=== PATIENT | female | born 1965 | race Caucasian/White ===

== ENCOUNTER → 2016-09-26 | Outpatient (CLI) | payer BC | END | disposition home or self-care (01) | LOC: C.PAPS 16:18 | PROVIDERS: ATTEND Obstetrics & Gynecology | DX: Z01.419 Encounter for gynecological examination (general) (routine) without abnormal findings (principal) ==

== ENCOUNTER → 2016-09-26 | Outpatient (CLI) | payer BC ==
[2016-09-26 15:05] LABS: HEMATOCRIT 41.6 % (37-47); MEAN CELL VOLUME 90.4 fL (80-100); MEAN CORPUSCULAR HEMOGLOBIN 31.1 pg (25-34); MEAN CORPUSCULAR HGB CONC 34.4 g/dl (32-36); MEAN PLATELET VOLUME 10.5 fL (7.4-10.4); PLATELET COUNT 318 K/uL (130-400); WHITE BLOOD COUNT 7.79 K/uL (4.8-10.8)
== END | disposition home or self-care (01) ==
LOC: C.LAB1850 13:51
PROVIDERS: ATTEND Obstetrics & Gynecology
DX: R53.83 Other fatigue (principal); N95.1 Menopausal and female climacteric states

== ENCOUNTER 2017-08-05 15:55 | Emergency (ER) | payer BC ==
[~2017-08-05] VITALS: Ht 154.9 cm; Wt 88.4 kg
[2017-08-05 15:57] VITALS: Ht 154.9 cm; Wt 88.4 kg
--- NOTE | 2017-08-05 16:49 | DIAGNOSTIC IMAGING REPORT ---
L FOOT MIN 3 VIEWS ROUTINE CLINICAL HISTORY: LEFT, PAIN IN DORSAL FOOT X 10 DAYS pain COMPARISON: None. DISCUSSION: The bones and joint spaces appear intact. There is no evidence of fracture, dislocation or bony disease. There is no evidence for soft tissue swelling. Mild degenerative change throughout. Heel spur. IMPRESSION: Mild degenerative change. Heel spur. No acute bony abnormality. The above report was generated using voice recognition software. It may contain grammatical, syntax or spelling errors. Electronically signed by: Mic Sher M.D. 08/05/2017 4:48 PM Dictated Date/Time: 08/05/2017 4:47 PM
--- NOTE | 2017-08-05 17:03 | EMERGENCY ROOM VISIT NOTE ---
ED Visit Note First contact with patient: 16:04 CHIEF COMPLAINT: Left foot pain 10 days HPI : Patient is a healthy 51-year-old white female who presents the emergency department for evaluation of left foot pain and swelling. Her symptoms started about 9 or 10 days ago. She denies any direct trauma to the foot. She cannot think of any unusual activity prior to the onset her pain, however after further questioning does admit that she has been walking on the treadmill for exercise fairly regularly. She states that she first noticed an aching/ stabbing discomfort in the top of her left foot at the base of her toes. At the end of her work day, after being on her feet for most of the day and wearing high-heeled shoes, she states that the top of her foot would be a little bit red, and it would swell. When she gets home, she will elevate the foot, and the elevation overnight causes the swelling to go down. She complains primarily of discomfort at the base of the second through the fourth toes. She has been applying ice and taking ibuprofen. Occasionally she gets some numbness in her toes. She does not have any symptoms in her right lower extremity. REVIEW OF SYSTEMS: Review of systems as per HPI. All other systems reviewed were negative. 10 systems reviewed. PMH: Electronic medical records are reviewed and summarized as above/below. See Problem List. SOCIAL HISTORY: Patient lives at home with her spouse. Smoker. PHYSICAL EXAM: Vital Signs: Reviewed Nurse's notes. GENERAL: Well-appearing 51- year-old white female who is awake and alert and in no acute distress. MUSCULOSKELETAL: Examination of the left foot, very mild swelling in the dorsum of the foot, primarily over the distal second, third and fourth metatarsal region. There is no erythema, increased warmth or induration. No lymphangitic streaking. The patient has tenderness in this area, no pain over the first MTP joint. No pain over the fifth metatarsal. Ankle is nontender. Range of motion is full. Pulses are easily appreciated. Sensation to light touch is intact. EMERGENCY DEPARTMENT COURSE: X-rays of the left foot were obtained, no acute bony abnormality was identified. She has a heel spur. Conservative care measures were discussed. The patient was offered a postoperative shoe, but prefers to wear a sneaker. She declined crutches. Differential diagnoses entertained included fracture, insufficiency fracture, tendinitis, neuroma, sprain, among others. She was concerned about cellulitis, which is not at all present. Patient was encouraged to rest, ice and elevate the foot and ankle, and avoid any strenuous activity for the next week. If her symptoms are not improving, she should follow-up with orthopedics. Medication reconciliation: I attest that I have personally reviewed the patient' s current medication list. Blood pressure screening : Patient was found to have normal blood pressure on screening and does not require follow-up. L FOOT MIN 3 VIEWS ROUTINE CLINICAL HISTORY: LEFT, PAIN IN DORSAL FOOT X 10 DAYS pain COMPARISON: None. DISCUSSION: The bones and joint spaces appear intact. There is no evidence of fracture, dislocation or bony disease. There is no evidence for soft tissue swelling. Mild degenerative change throughout. Heel spur. IMPRESSION: Mild degenerative change. Heel spur. No acute bony abnormality. Problem List Medical Problems: (1) Chest pain Status: Resolved Surgical Problems: (1) History of Status: Resolved Current/Historical Medications No Active Prescriptions or Reported Meds Allergies Coded Allergies: No Known Allergies (Unverified , 08/05/17) Vital Signs Date Time Temp Pulse Resp B/P (MAP) Pulse Ox O2 Delivery O2 Flow Rate FiO2 08/05/17 17:08 36.3 83 20 127/78 99 08/05/17 15:57 36.3 83 20 127/78 99 Room Air Departure Information Impression Primary Impression: Left foot pain Prescriptions No Active Prescriptions or Reported Meds Referrals Shannon Kasper C.R.N.P. (PCP) Patient Instructions [facility] Additional Instructions Ibuprofen(Motrin, Advil) may be used for fever or pain. Use 600mg every six hours as needed. Take with food. Avoid using more than 2400mg in a 24 hour period. Do not use 2400mg per day for more than three consecutive days without physician direction. Prolonged inappropriate use can lead to stomach upset or ulcers. This medication can be taken if you need to drive, work, or perform activities which may be dangerous when taking narcotic pain medication. (AND/OR) Acetaminophen(Tylenol) may be used for fever or pain. Use 1000mg every six hours as needed. Avoid using more than 3000mg in a 24 hour period. This medication can be taken if you need to drive, work, or perform activities which may be dangerous when taking narcotic pain medication. Ice compresses for 20 minutes at a time four times daily for 2-3 days. Rest and elevate your injury. Wear a supportive shoe with a firm bottom. Continue current medications. Return to the ER immediately for any numbness, tingling, severe pain, extreme swelling in the extremity or as needed. Followup with your family doctor or [facility] if no improvement in 7-10 days.
[2017-08-05 17:08] VITALS: BP 127/78; PULSE 83; TEMP 36.3; O2SAT 99
== END 2017-08-05 17:08 | disposition home or self-care (01) ==
LOC: C.EDB 15:56 → C.EDD 17:08
DX: M79.672 Pain in left foot (principal); F17.210 Nicotine dependence, cigarettes, uncomplicated